=== PATIENT | female | born 1975 | race Caucasian/White ===

== ENCOUNTER → 2017-02-14 | Outpatient (CLI) | payer OTHER, BC ==
--- NOTE | 2017-02-25 08:35 | REPMRS ---
Patient History The patient states she had a clinical breast exam in 01/2017. No known family history of cancer. Took hormonal contraceptives for 22 years. Digital Woman Screen Mammo: February 14, 2017 - Exam #: [id number] Bilateral CC and MLO view(s) were taken. Technologist: Annika Bautista, Technologist FINDINGS: The breast tissue is almost entirely fat. There is no evidence of dominant mass, architectural distortion, or clustered microcalcification typical of malignancy. ASSESSMENT: BI-RADS/ACR category 1 mammogram. Negative. Recommendation Routine screening mammogram in 1 year (for women over age 40). This mammogram was interpreted with the aid of an FDA-approved computer-aided dectection system. Electronically Signed By: Damien Hobbs MD 02/25/17 0834
== END ==
LOC: M WHC 15:31
PROVIDERS: ATTEND Nurse Practitioner Family
DX: Z12.31 Encounter for screening mammogram for malignant neoplasm of breast (principal)

== ENCOUNTER → 2017-02-14 | Outpatient (REF) | payer OTHER, BC | LOC: M SFHCWAGY 15:51 | PROVIDERS: ATTEND Nurse Practitioner Family | DX: Z12.4 Encounter for screening for malignant neoplasm of cervix (principal) ==

== ENCOUNTER → 2018-09-23 | Outpatient (CLI) | payer OTHER ==
--- NOTE | 2018-09-23 16:40 | REPMRS ---
Patient History The patient states she had a clinical breast exam in 08/2018. No known family history of cancer. Took hormonal contraceptives for 22 years. Digital Woman Screen Mammo: September 23, 2018 - Exam #: [id number] Bilateral CC and MLO view(s) were taken. Technologist: Annika Bautista, Technologist Prior study comparison: February 14, 2017, digital woman screen mammo performed at [facility]. FINDINGS: The breast tissue is almost entirely fat. Bilateral screening digital mammogram wit tomosynthesis. The patient states that there are no palpable abnormalities or other breast complaints. The patient's [facility] Lifetime Breast Carcinoma Risk is:10.8%. The breasts are almost entirely fatty.. There is no interval development of dominant mass, areas of architectural distortion, or clustered microcalcification typical of malignancy. There are no additional findings with tomosynthesis. This mammogram is interpreted with the aid of an FDA approved computer-aided detection system. Not all cancers are identified by mammography. Negative mammogram reports should not delay biopsy if a dominant or clinically suspicious mass is present. Adenosis and dense breasts may obscure an underlying neoplasm. No significant changes when compared with prior studies. Assessment: BI-RADS/ACR category 1 mammogram. Negative Mammogram. Recommendation Routine screening mammogram in 1 year (for women over age 40). This mammogram was interpreted with the aid of an FDA-approved computer-aided dectection system. A. Negative x-ray reports should not delay biopsy if a dominant or clinically suspicious mass is present. B. Not all cancers are identified by mammography. C. Adenosis and dense breast may obscure an underlying neoplasm. Electronically Signed By: Sy Nino M.D. 09/23/18 1640
== END ==
LOC: M WHC 14:49
PROVIDERS: ATTEND Nurse Practitioner Family
DX: Z12.31 Encounter for screening mammogram for malignant neoplasm of breast (principal)

== ENCOUNTER → 2018-09-23 | Outpatient (REF) | payer OTHER | LOC: M SFHCWAGY 15:15 | PROVIDERS: ATTEND Nurse Practitioner Family | DX: Z12.4 Encounter for screening for malignant neoplasm of cervix (principal) ==

== ENCOUNTER → 2019-11-13 | Outpatient (REF) | payer BC, OTHER | LOC: M SFHCPLAZ 12:12 | PROVIDERS: ATTEND Nurse Practitioner Family | DX: Z12.4 Encounter for screening for malignant neoplasm of cervix (principal); Z11.51 Encounter for screening for human papillomavirus (HPV) | CPT/HCPCS: 87624; G0123 ==

== ENCOUNTER → 2019-11-13 | Outpatient (CLI) | payer BC ==
--- NOTE | 2019-12-01 10:30 | REPMRS ---
Patient History The patient states she had a clinical breast exam in 10/2019. No known family history of cancer. Took hormonal contraceptives for 22 years. Digital Woman Screen Mammo: November 13, 2019 - Exam #: [id number] Bilateral CC and MLO view(s) were taken. Technologist: Gracia Spears, Technologist Prior study comparison: September 23, 2018, bilateral digital woman screen mammo performed at [facility]. February 14, 2017, digital woman screen mammo performed at [facility]. FINDINGS: The breast tissue is almost entirely fat. The Volpara volumetric breast density category is: A. There has been no change in the appearance of the mammogram from the prior studies. There is no interval development of dominant mass, architectural distortion, or grouped microcalcification typical of malignancy. 3-D tomosynthesis shows no additional findings. Assessment: BI-RADS/ACR category 1 mammogram. Negative Mammogram. Recommendation Routine screening mammogram of both breasts in 1 year (for women over age 40). This patient's Lifetime Breast Cancer RIsk is estimated at 10.7 %. This mammogram was interpreted with the aid of an FDA-approved computer-aided dectection system. Electronically Signed By: Damien Hobbs MD 12/01/19 0010
== END ==
LOC: M WHC 15:22
PROVIDERS: ATTEND Nurse Practitioner Family
DX: Z12.31 Encounter for screening mammogram for malignant neoplasm of breast (principal)

== ENCOUNTER → 2020-11-16 | Outpatient (CLI) | payer BC ==
--- NOTE | 2020-11-16 09:44 | REP ---
INDICATION: SCR MAMMO. COMPARISON: Multiple TECHNIQUE: Digital screening mammography was carried out bilaterally in the CC and MLO projections using both 2D and 3D modalities and compared to the prior exams. By history, the patient has no complaints of a palpable breast abnormality or other significant breast complaints. FINDINGS: The breasts are unchanged in size and shape. There are no deny soft tissue densities or spiculated masses. There is no internal architectural distortion. There are no suspicious calcifications. There is no skin thickening or nipple retraction. The Volpara volumetric breast density pattern is a. IMPRESSION: BIRADS/ACR category 1 negative mammogram. [facility] lifetime [facility] risk assessment score is 10.6%. This mammogram was interpreted with the aid of an FDA-approved computer-aided detection system. The patient states she had a clinical breast exam in October 2020. The patient letter being requested is M1. RECOMMENDATION: Repeat screening mammography recommended 1 year (for women over 40). <Electronically signed by Felipe Perry > 11/16/20 7451
== END ==
LOC: M WHC 07:55
PROVIDERS: ATTEND Nurse Practitioner Women's Health
DX: Z12.31 Encounter for screening mammogram for malignant neoplasm of breast (principal)

== ENCOUNTER → 2020-11-16 | Outpatient (REF) | payer BC, OTHER | LOC: M SFHCWAGY 13:14 | PROVIDERS: ATTEND Nurse Practitioner Women's Health | DX: Z12.4 Encounter for screening for malignant neoplasm of cervix (principal) ==

== ENCOUNTER → 2021-12-25 | Outpatient (CLI) | payer BC | LOC: M WHC 13:46 | PROVIDERS: ATTEND Nurse Practitioner Family | DX: Z12.31 Encounter for screening mammogram for malignant neoplasm of breast (principal) ==

== ENCOUNTER → 2022-12-28 | Outpatient (REF) | payer BC | LOC: M SFHCWAGY 10:29 | PROVIDERS: ATTEND Nurse Practitioner Family | DX: Z12.4 Encounter for screening for malignant neoplasm of cervix (principal) | CPT/HCPCS: 87624; G0123 ==

== ENCOUNTER → 2024-01-30 | Outpatient (CLI) | payer BC | LOC: M WHC 15:46 | PROVIDERS: ATTEND Nurse Practitioner Family | DX: Z12.31 Encounter for screening mammogram for malignant neoplasm of breast (principal); R92.323 Mammographic fibroglandular density, bilateral breasts ==

== ENCOUNTER → 2024-12-04 | Outpatient (CLI) | payer BC | LOC: M WHC 14:04 | PROVIDERS: ATTEND Nurse Practitioner Family | DX: N92.0 Excessive and frequent menstruation with regular cycle (principal) ==

== ENCOUNTER → 2025-01-13 | Outpatient (REF) | payer BC | LOC: M PLALAB 07:37 | PROVIDERS: ATTEND Obstetrics & Gynecology | DX: Z53.9 Procedure and treatment not carried out, unspecified reason (principal) ==

== ENCOUNTER → 2025-03-01 | Outpatient (CLI) | payer BC | LOC: M WHC 07:49 | PROVIDERS: ATTEND Nurse Practitioner Family | DX: Z12.31 Encounter for screening mammogram for malignant neoplasm of breast (principal); R92.313 Mammographic fatty tissue density, bilateral breasts ==

== ENCOUNTER → 2025-03-01 | Outpatient (CLI) | payer BC ==
[2025-03-01 10:22] LABS: PLATELET COUNT, AUTOMATED 264 10^3/uL (150-450)
[2025-03-01 10:51] LABS: ESTIMATED AVERAGE GLUCOSE 103.0 MG/DL (60-110)
[2025-03-01 11:03] LABS: ALT/SGPT 23 U/L (7.0-40); AST/SGOT 21 U/L (<34); CALCIUM LEVEL 8.8 MG/DL (8.5-10.1); CARBON DIOXIDE LEVEL 28 MMOL/L (20-31); CHLORIDE LEVEL 105 MMOL/L (98-107); CREATININE FOR GFR 0.63 MG/DL (0.55-1.30); FREE T4 1.11 NG/DL (0.89-1.76); GLOMERULAR FILTRATION RATE > 90.0 (>58); POTASSIUM SERUM 4.5 MMOL/L (3.5-5.1); SODIUM LEVEL 143 MMOL/L (136-145)
== END ==
LOC: M PLALAB 08:54
PROVIDERS: ATTEND Obstetrics & Gynecology
DX: O72.1 Other immediate postpartum hemorrhage (principal)
CPT/HCPCS: 36415; 80053; 83036; 84439; 84443; 85027; 87624; G0123

== ENCOUNTER → 2025-03-01 | Outpatient (REF) | payer BC ==
[2025-03-03 15:48] LABS: HPV APTIMA Not Detected (Not Detected)
== END ==
LOC: M PLALAB 08:21
PROVIDERS: ATTEND Nurse Practitioner Family
DX: Z12.4 Encounter for screening for malignant neoplasm of cervix (principal)
CPT/HCPCS: 87624; G0123